=== PATIENT | female | born 1965 | race Caucasian/White ===

== ENCOUNTER 2017-01-03 11:55 | Outpatient (CLI) | payer BC | END 2017-01-03 11:56 | disposition home or self-care (01) | LOC: NAVSJIPCSP 11:55 | DX: R30.0 Dysuria (principal) | CPT/HCPCS: 87086 ==

== ENCOUNTER 2017-05-10 10:36 | Outpatient (CLI) | payer BC ==
--- NOTE | 2017-05-10 13:05 | RAD ---
LEFT HIP TWO VIEWS: HISTORY: Left hip pain. FINDINGS/IMPRESSION: No fracture, dislocation, or bony destruction is seen. No significant osteophytosis is seen. POS: [facility]
== END 2017-05-10 10:37 | disposition home or self-care (01) ==
LOC: NAV RAD 10:36
DX: M25.552 Pain in left hip (principal)

== ENCOUNTER 2017-07-03 08:04 | Emergency (ER) | payer BC ==
[2017-07-03 08:46] LABS: #Basophils 0.1 thou/uL (0.0-0.2); #Eosinphils 0.2 thou/uL (0.0-0.7); #Monocytes 0.5 thou/uL (0.11-0.59); #Neutrophils 4.8 thou/uL (1.40-6.50); %Basophils 1.7 % (0.0-1.0); %Eosinophils 2.4 % (0.0-10.0); %Neutrophils 54.9 % (42.0-75.0); Hemoglobin 12.6 g/dL (12.0-16.0); Mean Corpuscular Volume 87.7 fl (81.0-99.0); Mean Platelet Volume 9.1 fL (7.4-10.4); Platelet Count 248 thou/uL (130-400); RBC Distribution Width 12.6 % (11.5-14.5); Red Blood Cell (RBC) Count 4.48 mill/uL (4.20-5.40); White Blood Cell (WBC) Count 8.7 thou/uL (4.8-10.8)
[2017-07-03 08:51] LABS: PTT 26.6 SEC (22.9-36.1)
--- NOTE | 2017-07-03 08:55 | CT ---
BRAIN CT WITHOUT IV CONTRAST: History: 52-year-old female with history of hand numbness on the left side. FINDINGS: No focal mass or midline shift. No intra or extraaxial hemorrhage. Left maxillary sinus mucosal disea se and mucous retention cyst. IMPRESSION: No acute intracranial process. No mass or bleed. Left maxillary sinus mucous retention cyst. POS: [facility]
[2017-07-03 09:02] LABS: CKMB 1.7 ng/mL (0-6.6); Troponin I 0.011 ng/mL (< 0.028)
[2017-07-03 09:21] LABS: ALT (SGPT) 16 U/L (8-55); AST (SGOT) 13 U/L (5-34); Albumin 3.7 g/dL (3.5-5.0); Alkaline Phosphatase 58 U/L (40-150); Anion Gap 14 mmol/L (10-20); BUN (Urea Nitrogen) 13 mg/dL (9.8-20.1); Bilirubin, Total 0.2 mg/dL (0.2-1.2); Calc. Creatinine Clearance 0 mL/min (70-130); Calcium 9.1 mg/dL (7.8-10.44); Carbon Dioxide 24 mmol/L (22-29); Chloride 108 mmol/L (98-107); Estimated GFR-MDRD Greater than 90; Glucose 108 mg/dL (70-105); Potassium 4.2 mmol/L (3.5-5.1); Protein, Total 6.7 g/dL (6.0-8.3); Sodium 142 mmol/L (136-145)
== END 2017-07-03 10:21 | disposition home or self-care (01) ==
LOC: NAV ERS 08:04
DX: R20.0 Anesthesia of skin (principal); F41.9 Anxiety disorder, unspecified; Z79.84 Long term (current) use of oral hypoglycemic drugs; Z79.899 Other long term (current) drug therapy
CPT/HCPCS: 70450; 80053; 82553; 84484; 85025; 85610; 85730; 93005; 94760

== ENCOUNTER 2019-07-06 15:06 | Outpatient (CLI) | payer BC ==
--- NOTE | 2019-07-06 16:37 | ULT ---
EXAM: Pelvic ultrasound HISTORY: Right lower quadrant abdominal/pelvic pain that began last night COMPARISON: None TECHNIQUE: Multiple grayscale and color Doppler images were obtained in a transabdominal and transvag inal pelvic ultrasound. Spectral analysis of the Doppler waveforms of the ovaries were performed. FINDINGS: The uterus is not seen and may have been removed. Neither ovary was definitely visualized. No free fl uid is seen in the pelvis. IMPRESSION: No significant pelvic abnormality
== END 2019-07-06 15:07 | disposition home or self-care (01) ==
LOC: NAV ULT 15:06
PROVIDERS: ATTEND Nurse Practitioner Adult Health
DX: R10.2 Pelvic and perineal pain (principal); R19.03 Right lower quadrant abdominal swelling, mass and lump
CPT/HCPCS: 76856

== ENCOUNTER 2019-07-08 07:56 | Outpatient (CLI) | payer BC ==
--- NOTE | 2019-07-08 10:50 | CT ---
EXAM: CT ABDOMEN AND PELVIS HISTORY: Pelvic pain. Abdominal mass, right lower quadrant. COMPARISON: None. Procedure: Multiple contiguous axial images were obtained and a CT of the abdomen and pelvis with IV contrast. C oronal reformats were performed. FINDINGS: Lower Chest: Dependent atelectatic change Vessels: Normal caliber aorta. No periaortic fat stranding. Slight ectasia of the descending thoracic aorta Heart: Normal heart size. No significant pericardial fluid Abdomen: Portal vein:Patent Gallbladder: Surgically absent Liver: Fatty infiltration of the liver with fatty sparing involving the right hepatic lobe. No enhanc ing masses. Pancreas: within normal limits. Spleen: within normal limits. Adrenals: Unremarkable right adrenal gland. Round 3.1 x 2.7 cm enhancing mass involving the lateral l imb of the left adrenal gland, with attenuation coefficient of 73 Hounsfield units. Incomplete characterization. Kidneys: Symmetric enhancement. No obstructive uropathy. Nonobstructing 6 mm calculus in the right re nal pelvis. Possible exophytic pelvic cyst in the left kidney, measuring 1.3 x 1.2 cm. Peritoneum: No ascites or free air, no fluid collection. Bowel: No evidence of bowel obstruction. Ileocecal junction is unremarkable. Appendix is surgically a bsent. No inflammation of the cecal apex.. Scattered fecal material in a nondistended, nondilated colon. Occasional diverticulum. No diverticulitis. Mesentery and Retroperitoneum: No enlarged mesenteric or retroperitoneal lymph nodes. Abdominal Wall: within normal limits. Pelvis: Reproductive Organs: Surgically absent uterus. Pelvis: No mass, lymphadenopathy, free air or free fluid. Bladder: Grossly unremarkable urinary bladder. Bones: within normal limits. IMPRESSION: 1. No acute abnormality in the abdomen and pelvis. 2. Surgically absent appendix. No obvious inflammation at the cecal apex. No obvious mass in the righ t lower quadrant. 3. Left renal pelvic cyst as well as a nonobstructing calculus in the right renal pelvis. 4. Solid attenuation mass involving the lateral limb of the left adrenal gland. Correlate for adrenal adenoma. Dedicated abdomen MRI is recommended. NOEL T
== END 2019-07-08 07:57 | disposition home or self-care (01) ==
LOC: NAV LAB 07:56
PROVIDERS: ATTEND Nurse Practitioner Adult Health
DX: Z01.812 Encounter for preprocedural laboratory examination (principal); R10.2 Pelvic and perineal pain; R19.03 Right lower quadrant abdominal swelling, mass and lump; N28.1 Cyst of kidney, acquired; N20.0 Calculus of kidney; E27.9 Disorder of adrenal gland, unspecified
CPT/HCPCS: 36415; 74177; 82565

== ENCOUNTER 2020-03-23 14:59 | Outpatient (CLI) | payer BC ==
--- NOTE | 2020-03-23 15:18 | RAD ---
XR Abdomen 1 View/KUB History: Renal calculi Comparison: CT December 23, 2019 Findings: Similar appearance of the thin calcification projecting over the right interpolar renal col lecting system measuring up to 4 mm. Phleboliths in the left hemipelvis. No calcifications are seen projecting of the left renal collecting system. No dilated loops of large or small bowel. Mild narrowing of the pubic symphysis. Small acetabular ost eophytes. Impression: Similar right interpolar renal calculus. No left-sided renal calculi or ureteral calculi definitively appreciated.
== END 2020-03-23 15:00 | disposition home or self-care (01) ==
LOC: NAV RAD 14:59
PROVIDERS: ATTEND Urology
DX: N20.0 Calculus of kidney (principal)
CPT/HCPCS: 74018

== ENCOUNTER 2020-04-24 13:04 | Emergency (ER) | payer BC ==
--- NOTE | 2020-04-24 13:52 | RAD ---
XR Pelvis AP STANDARD HISTORY: Injury, right hip pain FINDINGS: No fracture or dislocation is identified.
== END 2020-04-24 14:30 | disposition home or self-care (01) ==
LOC: NAV ERS 13:04
DX: S39.011A Strain of muscle, fascia and tendon of abdomen, initial encounter (principal); S76.311A Strain of muscle, fascia and tendon of the posterior muscle group at thigh level, right thigh, initial encounter; E11.9 Type 2 diabetes mellitus without complications; Z87.891 Personal history of nicotine dependence; Z79.84 Long term (current) use of oral hypoglycemic drugs; Z79.899 Other long term (current) drug therapy; W11.XXXA Fall on and from ladder, initial encounter
CPT/HCPCS: 72170

== ENCOUNTER 2020-12-13 09:07 | Outpatient (CLI) | payer BC ==
[~2020-12-13 09:07] MED LIST: Iopamidol 370 76% 100 ML VIAL ONE
== END 2020-12-13 09:08 | disposition home or self-care (01) ==
LOC: NAV CT 09:07
PROVIDERS: ATTEND Urology
DX: D17.71 Benign lipomatous neoplasm of kidney (principal); N20.0 Calculus of kidney; K76.0 Fatty (change of) liver, not elsewhere classified; E27.8 Other specified disorders of adrenal gland; N28.1 Cyst of kidney, acquired; D17.4 Benign lipomatous neoplasm of intrathoracic organs; Z91.013 Allergy to seafood
CPT/HCPCS: 74177; Q9967

== ENCOUNTER 2023-12-17 21:28 | Emergency (ER) | payer BC ==
[2023-12-17] MEDS ORDERED: Mag-Al Plus 1200/1200/120 MG (30 mL) UDCUP ONE (22:05)
[2023-12-17] MEDS ORDERED: Lidocaine 2% Viscous 100 ML BOTTLE ONE (22:06)
[2023-12-17 22:29] LABS: #Basophils 0.2 thou/uL (0.0-0.2); #Eosinphils 0.2 thou/uL (0.0-0.7); #Lymphocytes 4.4 thou/uL (1.20-3.40); #Monocytes 0.9 thou/uL (0.11-0.59); %Basophils 1.5 % (0.0-1.0); %Eosinophils 2.2 % (0.0-10.0); %Monocytes 8.6 % (0.0-10.0); %Neutrophils 46.7 % (42.0-75.0); Hematocrit 41.7 % (36.0-47.0); Hemoglobin 13.4 g/dL (12.0-16.0); Mean Corpuscular HGB CONC 32.1 g/dL (32.0-36.0); Mean Corpuscular Hemoglobin 28.2 pg (27.0-31.0); Mean Corpuscular Volume 87.7 fl (78.0-98.0); Mean Platelet Volume 8.5 fL (7.4-10.4); Platelet Count 234 10x3/uL (130-400); RBC Distribution Width 12.9 % (11.5-14.5); Red Blood Cell (RBC) Count 4.76 mill/uL (4.20-5.40); White Blood Cell (WBC) Count 10.7 10x3/uL (4.8-10.8)
[2023-12-17 22:34] LABS: ALT (SGPT) 16 U/L (8-55); AST (SGOT) 12 U/L (5-34); Albumin 3.3 g/dL (3.5-5.0); Alkaline Phosphatase 74 U/L (40-110); Anion Gap 13 mmol/L (10-20); BUN (Urea Nitrogen) 13 mg/dL (9.8-20.1); Bilirubin, Total 0.2 mg/dL (0.2-1.2); Calc. Creatinine Clearance 0 mL/min (70-130); Calcium 9.5 mg/dL (7.8-10.44); Carbon Dioxide 28 mmol/L (22-29); Chloride 104 mmol/L (98-107); Estimated GFR 64; Globulin 3.7 g/dL (2.4-3.5); Glucose 108 mg/dL (70-105); Sodium 141 mmol/L (136-145)
[2023-12-17 22:35] LABS: Troponin I Less than 0.010 ng/mL (< 0.028)
[2023-12-17] MEDS ORDERED: Pantoprazole DR 40 MG TAB ONE (22:57)
== END 2023-12-17 23:06 | disposition home or self-care (01) ==
LOC: NAV ERS 21:28
DX: S29.011A Strain of muscle and tendon of front wall of thorax, initial encounter (principal); K21.9 Gastro-esophageal reflux disease without esophagitis; I10 Essential (primary) hypertension; E11.9 Type 2 diabetes mellitus without complications; Z87.891 Personal history of nicotine dependence; X58.XXXA Exposure to other specified factors, initial encounter
CPT/HCPCS: 36415; 71045; 80053; 84484; 85025; 93005